=== PATIENT | female | born 1960 | race Caucasian/White ===

== ENCOUNTER → 2017-10-07 | Outpatient (CLI) | payer BC | LOC: MAMMO 13:50 | DX: Z12.31 Encounter for screening mammogram for malignant neoplasm of breast (principal) | CPT/HCPCS: G0202 ==

== ENCOUNTER → 2018-07-24 | Outpatient (CLI) | payer BC | LOC: RAD 09:19 | DX: R07.81 Pleurodynia (principal) ==

== ENCOUNTER → 2018-08-21 | Outpatient (CLI) | payer BC | LOC: CARDLAB 04:21 → CARDREHAB 08:17 → CARDLAB 09:19 | DX: R07.9 Chest pain, unspecified (principal); R06.02 Shortness of breath; R20.2 Paresthesia of skin | CPT/HCPCS: A9500 ==

== ENCOUNTER → 2018-11-17 | Outpatient (CLI) | payer BC | LOC: LAB 10:44 | DX: Z00.00 Encounter for general adult medical examination without abnormal findings (principal) ==